=== PATIENT | male | born 1985 | race Two or more races ===

== ENCOUNTER 2022-03-29 10:59 | Emergency (ER) | payer SELFPAY ==
[~2022-03-29] VITALS: Ht 172.7 cm; Wt 115.0 kg
[2022-03-29] MEDS ORDERED: LEVETIRACETAM 1000MG PREMIX 100 ML IV ONE (11:15)
[2022-03-29 11:37] LABS: CHLORIDE 106 mEq/L (98-107)
[2022-03-29 11:38] LABS: BASOPHILS % 0.3 % (0.0-2.0); EOSINOPHILS % 0.1 % (0.0-5.0); HEMATOCRIT. 45.6 % (42.0-52.0); HEMOGLOBIN. 15.2 g/dL (14.0-18.0); LYMPHOCYTES % 8.4 % (20.0-50.0); MEAN CORPUSCULAR HEMOGLOBIN 32.6 pg (28.0-32.0); MEAN CORPUSCULAR VOLUME 98.3 fL (80.0-94.0); MONOCYTES % 8.2 % (2.0-8.0); PLATELET 183 x1000/uL (130-400); RED BLOOD CELL COUNT 4.64 mill/uL (4.7-6.1); RED CELL DISTRIBUTION WIDTH 15.5 % (11.6-14.6)
[2022-03-29 13:16] VITALS: BP 157/86
[2022-03-29] MEDS ORDERED: ONDANSETRON HCL 4MG/2ML INJ IV ONE (13:45)
[2022-03-29] MEDS ORDERED: KEPP500 MT (14:31)
== END 2022-03-29 15:01 | disposition home or self-care (01) ==
LOC: ER 11:11
DX: G40.909 Epilepsy, unspecified, not intractable, without status epilepticus (principal)
CPT/HCPCS: 36415; 70450; 80053; 85025; 96365; 96375; 99284; J1953; J2405

== ENCOUNTER 2022-03-29 15:40 | Emergency (ER) | payer OTHER ==
[~2022-03-29] VITALS: Ht 182.9 cm; Wt 1274.0 kg
[~2022-03-29 15:40] MED LIST: KEPP500 MT
[2022-03-29 17:09] LABS: BASOPHILS % 0.4 % (0.0-2.0); CHLORIDE 105 mEq/L (98-107); EOSINOPHILS % 0.1 % (0.0-5.0); HEMATOCRIT. 45.8 % (42.0-52.0); HEMOGLOBIN. 15.2 g/dL (14.0-18.0); LYMPHOCYTES % 9.3 % (20.0-50.0); MEAN CORPUSCULAR HEMOGLOBIN 32.8 pg (28.0-32.0); MEAN CORPUSCULAR VOLUME 98.7 fL (80.0-94.0); MEAN PLATELET VOLUME 8.8 fl (7.4-10.4); MONOCYTES % 9.2 % (2.0-8.0); PLATELET 162 x1000/uL (130-400); RED BLOOD CELL COUNT 4.64 mill/uL (4.7-6.1); RED CELL DISTRIBUTION WIDTH 15.4 % (11.6-14.6)
[2022-03-29 17:22] LABS: ETHANOL BLOOD < 10 mg/dL
[2022-03-29 18:15] VITALS: BP 144/84
[2022-03-29] MEDS ORDERED: MIDAZOLAM HCL 2 MG/2 ML VIAL ONE (18:17)
[2022-03-29 18:24] LABS: CLARITY URINE CLEAR (CLEAR); COLOR URINE YELLOW (YELLOW); KETONES URINE 1+ (NEGATIVE); LEUKOCYTE ESTERASE URINE NEGATIVE (NEGATIVE); NITRITE URINE NEGATIVE (NEGATIVE); OCCULT BLOOD URINE 1+ (NEGATIVE); PROTEIN URINE 3+ (NEGATIVE); SPECIFIC GRAVITY URINE 1.017 (1.005-1.030); UROBILINOGEN URINE 0.2 E.U./dL (0.2-1.0)
[2022-03-29 18:46] LABS: *AMPHETAMINES SCREEN URINE NEGATIVE (NEGATIVE); *BARBITURATES SCREEN URINE NEGATIVE (NEGATIVE); *BENZODIAZEPINES SCREEN URINE NEGATIVE (NEGATIVE); *COCAINE SCREEN URINE NEGATIVE (NEGATIVE); CANNABINOID URINE SCREEN PRESUMTIVE POSITIVE (NEGATIVE); METHADONE URINE SCREEN NEGATIVE (NEGATIVE); OPIATES URINE SCREEN NEGATIVE (NEGATIVE); PHENCYCLIDINE URINE SCREEN NEGATIVE (NEGATIVE)
[2022-03-30] MEDS ORDERED: MIDAZOLAM HCL 2 MG/2 ML VIAL IM NR (12:45)
== END 2022-03-29 19:40 | disposition left against medical advice (07) ==
LOC: ER 15:40
DX: G40.909 Epilepsy, unspecified, not intractable, without status epilepticus (principal); S00.81XA Abrasion of other part of head, initial encounter; F12.10 Cannabis abuse, uncomplicated; W06.XXXA Fall from bed, initial encounter; Y93.89 Activity, other specified; Y92.238 Other place in hospital as the place of occurrence of the external cause
CPT/HCPCS: 36415; 80053; 80305; 80320; 81003; 85025; 99283; J2250; G0480

== ENCOUNTER 2024-03-30 10:28 | Inpatient (IN) | payer OTHER ==
[2024-03-30] VITALS (35 sets, daily range): BP systolic 81–112; BP diastolic 43–64; PULSE 70–126; RESP 11–30; TEMP 35.72508–36.14; O2SAT 95–100
[~2024-03-30] VITALS: Ht 170.2 cm; Wt 131.8 kg
[~2024-03-30 10:28] MED LIST changes: +DIGO125T80 MT; +ETOMIDATE 2MG/ML 10ML VIAL IV ONE; +FOLI-43 PO; +FURO-151 PO; -KEPP500 MT; +METO100T16 PO; +SPIR50TA5 PO
[2024-03-30] MEDS: SODIUM CHLORIDE 0.9% 1,000 ML IV ONE (10:45)
[2024-03-30 11:00] LABS: HEMATOCRIT. 29.3 % (42.0-52.0); HEMOGLOBIN. 9.7 g/dL (14.0-18.0); MEAN CORPUSCULAR HEMOGLOBIN 34.3 pg (28.0-32.0); MEAN CORPUSCULAR HGB CONC 33.1 g/dL (31.0-37.0); MEAN CORPUSCULAR VOLUME 103.6 fL (80.0-94.0); MEAN PLATELET VOLUME 8.3 fl (7.4-10.4); PLATELET 60 x1000/uL (130-400); RED BLOOD CELL COUNT 2.83 mill/uL (4.7-6.1); RED CELL DISTRIBUTION WIDTH 15.8 % (11.6-14.6); WHITE BLOOD COUNT 22.6 x1000/uL (4.5-11.0)
[2024-03-30 11:09] LABS: DIFFERENTIAL COMMENT 1
[2024-03-30 11:18] LABS: CHLORIDE 97 mEq/L (98-107); POTASSIUM 4.6 mEq/L (3.5-5.1); SODIUM 125 mEq/L (136-145)
[2024-03-30 11:19] LABS: CALCIUM 7.8 mg/dL (8.7-10.4); CARBON DIOXIDE 17 mEq/L (21-32)
[2024-03-30 11:24] LABS: GLUCOSE 88 mg/dL (70-105); UREA NITROGEN BLOOD 30 mg/dL (9-23)
[2024-03-30 11:25] LABS: ETHANOL BLOOD < 10 mg/dL (<10)
[2024-03-30 11:28] LABS: THYROID STIMULATING HORMONE 2.44 uIU/mL (0.55-4.78)
[2024-03-30] MEDS: DILTIAZEM HCL 5MG/ML 5ML VIAL IV NR ×2 (11:29→12:35)
[2024-03-30 11:30] LABS: INR 1.9; PROTHROMBIN TIME 20.7 sec (9.6-11.0)
[2024-03-30 11:34] LABS: ALANINE AMINOTRANSFERASE 19 IU/L (10-49); ALBUMIN 2.1 g/dL (3.2-4.8); AMMONIA 65 uMol/L (<32); ASPARTATE AMINOTRANSFERASE 66 IU/L (<34); BILIRUBIN TOTAL 8.1 mg/dL (0.1-1.0)
[2024-03-30 11:43] LABS: CREATININE 2.6 mg/dL (0.6-1.3)
[2024-03-30 11:44] LABS: TROPONIN I HIGH SENSITIVITY 250 ng/L (3.0-53)
[2024-03-30] MEDS: DILTIAZEM HCL 125 MG in DEXT 5% WATER 100 ML IV PRN (11:50)
[2024-03-30] MEDS ORDERED: MIDAZOLAM HCL 100 MG in DEXT 5% WATER 80 ML IV ONE (12:45)
[2024-03-30] MEDS: ROCURONIUM BROMIDE 10MG/ML VIAL 5ML IV ONE (12:54)
[2024-03-30] MEDS: ETOMIDATE 2MG/ML 10ML VIAL IV ONE (12:54)
[2024-03-30 13:21] LABS: PLATELET ESTIMATE DECREASED
[2024-03-30 13:22] LABS: ANISOCYTOSIS 2+
[2024-03-30] MEDS: MIDAZOLAM 100MG/100ML PREMIX IV PRN (13:26)
[2024-03-30] MEDS: CEFTRIAXONE 2GM/50ML 50 ML IV ONE (13:49)
[2024-03-30 14:55] LABS: BG BASE EXCESS -11.5 mmol/L (-2.0-2.0); BG DEOXYHEMOGLOBIN 3.9 % (0.0-5.0); BG FRACTION INSPIRED OXYGEN 100; BG HCO3 ACT 17.8 mmol/L (22.0-26.0); BG METHEMOGLOBIN 0.3 % (0.0-1.5); BG OXYHEMOGLOBIN 93.8 % (94.0-97.0); BG PH 7.121 (7.350-7.450); BG PO2 98.2 mmHg (75.0-100.0); BG SAMPLE SITE RIGHT RADIAL; BG TOTAL HEMOGLOBIN 11.3 g/dL (12.0-18.0); BG VENT MODE VENT - AC/VC
[2024-03-30 15:36] LABS: LACTIC ACID 5.9 mmol/L (0.4-2.0)
[2024-03-30] MEDS ORDERED: IPRATROPIUM/ALBUTEROL 0.5-3(2.5)MG/3ML NEB HHN PRN (16:00)
[2024-03-30] MEDS: FOLIC ACID 1 MG, THIAMINE HCL 100 MG, MVI, ADULT NO.1 10 ML in DEXTROSE 5% WATER 1,000 ML IV ONE (16:07)
[2024-03-30] MEDS ORDERED: ONDANSETRON HCL 4MG/2ML INJ IV PRN (17:15)
[2024-03-30] MEDS ORDERED: MIDAZOLAM 100MG/100ML PMX 100 ML IV PRN (18:00)
[2024-03-30] MEDS: PANTOPRAZOLE SODIUM 40 MG/VIAL IV SCH (18:47)
[2024-03-30] MEDS: PIPERACILLIN/TAZO 3.375G/50ML 50 ML IV SCH (18:47)
[2024-03-30] MEDS: VANCOMYCIN 2,000 MG in DEXT 5% WATER 500 ML IV SCH (19:46)
[2024-03-30] MEDS: PHYTONADIONE 10MG/ML INJ SUBCUT SCH (19:46)
[2024-03-30 20:02] LABS: BG BASE EXCESS -14.3 mmol/L (-2.0-2.0); BG CARBOXYHEMOGLOBIN 0.5 % (0.5-1.5); BG DEOXYHEMOGLOBIN 5.5 % (0.0-5.0); BG FRACTION INSPIRED OXYGEN 100; BG HCO3 ACT 12.8 mmol/L (22.0-26.0); BG METHEMOGLOBIN 0.3 % (0.0-1.5); BG OXYGEN SATURATION 94.5 % (92.0-98.5); BG OXYHEMOGLOBIN 93.7 % (94.0-97.0); BG PCO2 34.2 mmHg (35.0-45.0); BG PH 7.191 (7.350-7.450); BG PO2 82.6 mmHg (75.0-100.0); BG SAMPLE SITE RIGHT RADIAL; BG TOTAL HEMOGLOBIN 10.5 g/dL (12.0-18.0); BG VENT MODE VENT - AC
[2024-03-30] MEDS: IPRATROPIUM/ALBUTEROL 0.5-3(2.5)MG/3ML NEB HHN SCH (20:36)
[2024-03-30] MEDS: SODIUM BICARBONATE 8.4% 50MEQ/50ML SYR IV SCH (20:49)
[2024-03-30] MEDS: LACTULOSE 20G/30ML UDC PO NR (22:01)
[2024-03-30] MEDS: SODIUM CHLORIDE 0.9% 1,000 ML IV SCH (22:09)
[2024-03-30] MEDS: NOREPINEPHRINE 8MG/250ML PMX 250 ML IV PRN (22:19)
[2024-03-30 23:42] LABS: CREATINE KINASE MB FRACTION 25.6 ng/mL (0.5-3.6)
[2024-03-31] VITALS (114 sets, daily range): BP systolic 54–123; BP diastolic 25–106; PULSE 82–185; RESP 26–38; TEMP 36.55848–37.33632; O2SAT 89–100
[2024-03-31] MEDS: PHENYLEPHRINE 50MG/250ML PMX 250 ML IV PRN (00:17)
[2024-03-31 05:50] LABS: POTASSIUM 5.5 mEq/L (3.5-5.1)
[2024-03-31 05:51] LABS: CALCIUM 7.5 mg/dL (8.7-10.4)
[2024-03-31 05:53] LABS: CREATINE KINASE MB FRACTION 39.4 ng/mL (0.5-3.6)
[2024-03-31 05:56] LABS: CREATININE 3.3 mg/dL (0.6-1.3); HEMATOCRIT. 29.9 % (42.0-52.0); MEAN CORPUSCULAR HEMOGLOBIN 34.2 pg (28.0-32.0); MEAN CORPUSCULAR HGB CONC 30.3 g/dL (31.0-37.0); MEAN PLATELET VOLUME 9.6 fl (7.4-10.4); PLATELET 71 x1000/uL (130-400); RED BLOOD CELL COUNT 2.65 mill/uL (4.7-6.1); RED CELL DISTRIBUTION WIDTH 17.4 % (11.6-14.6)
[2024-03-31 05:57] LABS: LACTIC ACID 13.5 mmol/L (0.4-2.0)
[2024-03-31 08:05] LABS: DIFFERENTIAL COMMENT 1
[2024-03-31 08:42] LABS: TROPONIN I HIGH SENSITIVITY 2683 ng/L (3.0-53)
[2024-03-31] MEDS ORDERED: LIDOCAINE HCL 1% 10 MG/ML 10ML VIAL ONE (09:01)
[2024-03-31] MEDS: SODIUM POLYSTYRENE SULFONATE 15 G/60 ML BOT PO NR (09:27)
[2024-03-31] MEDS: SODIUM BICARBONATE 8.4% 50MEQ/50ML SYR IV NR ×2 (09:28→19:07)
[2024-03-31] MEDS: SODIUM BICARBONATE 100 MEQ in SODIUM CHLORIDE 0.45% 900 ML IV SCH (09:28)
[2024-03-31] MEDS: AZITHROMYCIN 500 MG TABLET GT SCH (11:53)
[2024-03-31] MEDS ORDERED: EPINEPHRINE 10 MG in SODIUM CHLORIDE 0.9% 240 ML IV PRN (15:00)
[2024-03-31] MEDS: PHYTONADIONE 10MG/ML INJ SUBCUT SCH (15:24)
[2024-03-31] MEDS: PHENYLEPHRINE 100 MG in DEXT 5% WATER 240 ML IV PRN (16:19)
[2024-03-31] MEDS: NOREPINEPHRINE 32 MG in DEXT 5% WATER 218 ML IV PRN (16:20)
[2024-03-31] MEDS: MIDAZOLAM 100MG/100ML PMX 100 ML IV PRN (16:20)
[2024-03-31 16:31] LABS: ANISOCYTOSIS 1+; PLATELET ESTIMATE DECREASED
[2024-03-31 16:33] LABS: TOXIC VACUOLATION 1+
[2024-03-31] MEDS: VASOPRESSIN 20 UNIT in SODIUM CHLORIDE 0.9% 99 ML IV PRN (23:43)
[2024-04-01] VITALS (80 sets, daily range): BP systolic 58–117; BP diastolic 28–81; PULSE 85–178; RESP 0–40; TEMP 37.72524–38.55864; O2SAT 65–98
[2024-04-01] MEDS: ACETAMINOPHEN 325MG TABLET PO PRN (05:17)
[2024-04-01 05:48] LABS: CARBON DIOXIDE 14 mEq/L (21-32); CHLORIDE 93 mEq/L (98-107); SODIUM 126 mEq/L (136-145)
[2024-04-01 05:49] LABS: CALCIUM 6.6 mg/dL (8.7-10.4)
[2024-04-01] MEDS: DEXTROSE 50% WATER 50ML SYRINGE IV NR ×2 (05:49→14:03)
[2024-04-01 05:54] LABS: ALBUMIN 1.8 g/dL (3.2-4.8); CREATININE 3.9 mg/dL (0.6-1.3); UREA NITROGEN BLOOD 48 mg/dL (9-23)
[2024-04-01 06:00] LABS: GLUCOSE 11 mg/dL (70-105); PREALBUMIN < 5.0 mg/dl (10.0-40.0)
[2024-04-01] MEDS: SODIUM POLYSTYRENE SULFONATE 15 G/60 ML BOT PO NR (06:17)
[2024-04-01] MEDS: DEXTROSE 50% WATER 50ML SYRINGE IV ONE (06:18)
[2024-04-01] MEDS: SODIUM BICARBONATE 8.4% 50MEQ/50ML SYR IV NR (06:18)
[2024-04-01] MEDS: INSULIN REGULAR (HUMULIN R) 1000UNITS/10ML VIAL IV NR (06:20)
[2024-04-01 07:36] LABS: HEMATOCRIT. 25.3 % (42.0-52.0); HEMOGLOBIN. 7.8 g/dL (14.0-18.0); MEAN CORPUSCULAR HEMOGLOBIN 34.5 pg (28.0-32.0); MEAN CORPUSCULAR HGB CONC 30.9 g/dL (31.0-37.0); MEAN CORPUSCULAR VOLUME 111.3 fL (80.0-94.0); RED BLOOD CELL COUNT 2.28 mill/uL (4.7-6.1); RED CELL DISTRIBUTION WIDTH 17.3 % (11.6-14.6); WHITE BLOOD COUNT 34.9 x1000/uL (4.5-11.0)
[2024-04-01 08:01] LABS: DIFFERENTIAL COMMENT 1
[2024-04-01] MEDS: CALCIUM GLUCONATE 1GM PREMIX 50 ML IV NR (08:19)
[2024-04-01] MEDS ORDERED: DEXT 10% WATER 1,000 ML IV SCH (08:30)
[2024-04-01] MEDS: AZITHROMYCIN 40MG/ML SUSP 5ML ORAL SYR GT SCH (08:42)
[2024-04-01] MEDS: SODIUM BICARBONATE 8.4% 50MEQ/50ML SYR IV SCH (09:03)
[2024-04-01] MEDS: DEXT 10% WATER 1,000 ML IV SCH (09:04)
[2024-04-01 10:39] LABS: BG BASE EXCESS -12.2 mmol/L (-2.0-2.0); BG DEOXYHEMOGLOBIN 61.3 % (0.0-5.0); BG HCO3 ACT 15.3 mmol/L (22.0-26.0); BG METHEMOGLOBIN 0.4 % (0.0-1.5); BG OXYGEN SATURATION 37.8 % (92.0-98.5); BG OXYHEMOGLOBIN 37.3 % (94.0-97.0); BG PCO2 42.5 mmHg (35.0-45.0); BG PH 7.175 (7.350-7.450); BG PO2 < 30.3 mmHg (75.0-100.0); BG SAMPLE SITE VBG - N/A; BG TOTAL HEMOGLOBIN 7.4 g/dL (12.0-18.0)
[2024-04-01] MEDS: VANCOMYCIN 500MG/100ML IV NR (11:02)
[2024-04-01] MEDS: BLOOD SUGAR DIAGNOSTIC STRIP TEST SCH ×2 (12:00→14:29)
[2024-04-01 16:04] LABS: ANISOCYTOSIS 1+
[2024-04-01 16:05] LABS: ROULEAUX 1+
[2024-04-01 16:06] LABS: PLATELET ESTIMATE MARKEDLY DECREASED
[2024-04-01 16:07] LABS: MEAN PLATELET VOLUME 9.5 fl (7.4-10.4)
[2024-04-01 16:10] LABS: PLATELET 42 x1000/uL (130-400)
[2024-04-01 16:16] LABS: POTASSIUM 6.9 mEq/L (3.5-5.1)
[2024-04-01] MEDS: MORPHINE SULFATE 250 MG in DEXT 5% WATER 225 ML IV PRN (17:05)
== END 2024-04-01 21:09 | DRG 720 ==
LOC: ER 10:28 → EDBEDREQSVC 12:39 → EDBEDREQTM 12:39 → EDBEDREQ 12:39 → CVICU 17:35
PROVIDERS: ADMIT Internal Medicine; ATTEND Internal Medicine
PROC: 5A1945Z Respiratory Ventilation, 24-96 Consecutive Hours (ICD-10-PCS; principal; 2024-03-30)
PROC: 0BH17EZ Insertion of Endotracheal Airway into Trachea, Via Natural or Artificial Opening (ICD-10-PCS; 2024-03-30)
PROC: 02HV33Z Insertion of Infusion Device into Superior Vena Cava, Percutaneous Approach (ICD-10-PCS; 2024-03-31)
PROC: B548ZZA Ultrasonography of Superior Vena Cava, Guidance (ICD-10-PCS; 2024-03-31)
DX: A40.1 Sepsis due to streptococcus, group B (principal); J96.00 Acute respiratory failure, unspecified whether with hypoxia or hypercapnia; K76.7 Hepatorenal syndrome; N17.0 Acute kidney failure with tubular necrosis; J69.0 Pneumonitis due to inhalation of food and vomit; G92.8 Other toxic encephalopathy; R65.21 Severe sepsis with septic shock; R57.0 Cardiogenic shock; E72.20 Disorder of urea cycle metabolism, unspecified; I50.23 Acute on chronic systolic (congestive) heart failure; I21.A1 Myocardial infarction type 2; Z66 Do not resuscitate; L89.153 Pressure ulcer of sacral region, stage 3; D68.9 Coagulation defect, unspecified; E83.51 Hypocalcemia; E87.1 Hypo-osmolality and hyponatremia; I48.91 Unspecified atrial fibrillation; D64.9 Anemia, unspecified; D69.6 Thrombocytopenia, unspecified; E87.20 Acidosis, unspecified; J15.3 Pneumonia due to streptococcus, group B; E87.5 Hyperkalemia; K76.82 Hepatic encephalopathy; Z20.822 Contact with and (suspected) exposure to COVID-19; E88.09 Other disorders of plasma-protein metabolism, not elsewhere classified; F10.10 Alcohol abuse, uncomplicated; I25.10 Atherosclerotic heart disease of native coronary artery without angina pectoris; K70.31 Alcoholic cirrhosis of liver with ascites; I42.9 Cardiomyopathy, unspecified; R56.9 Unspecified convulsions
CPT/HCPCS: 36415; 36573; 36600; 71045; 76705; 80048; 80076; 80202; 80320; 82040; 82140; 82375; 82533; 82550; 82553; 82803; 82805; 82962; 83605; 83880; 83930; 84132; 84134; 84145; 84443; 84484; 85025; 85379; 87070; 87077; 87186; 87426; 87804; 93970; 94003; 94640; 99291; A6261; C1725; C1769; J0610; J0696; J1815; J2250; J2270; J2470; J2543; J3370; J3411; J3430; J3490; J7030; J7050; J7060; J7070; G0480